=== PATIENT | female | born 1955 | race Caucasian/White ===

== ENCOUNTER 2016-04-21 08:38 | Emergency (ER) | payer OTHER ==
[~2016-04-21] VITALS: Ht 162.6 cm; Wt 59.0 kg
[~2016-04-21 08:38] MED LIST: HALO1TAB19 PO; LEVO25TA9 PO; LORA1TAB3 PO; MIRT30 PO; MULT1CAP32 PO; OLAN10TA3 PO; OMEP20 PO; PROP40TA7 PO; TRAZ-147 PO; ZOLP10 PO
[2016-04-21] MEDS ORDERED: CLON1 PO (08:52)
[2016-04-21] MEDS ORDERED: OXYB5 PO (08:52)
[2016-04-21] MEDS ORDERED: DOCU250C91 PO (08:52)
[2016-04-21 11:05] LABS: BASOPHILS # (AUTO) 0.01 K/uL (0.00-0.20); BASOPHILS % (AUTO) 0.3 % (0.0-2.0); EOSINOPHILS # (AUTO) 0.01 K/uL (0.00-0.70); EOSINOPHILS % (AUTO) 0.28 % (1.0-6.0); HEMATOCRIT 39.3 % (36-46); HEMOGLOBIN 13.7 g/dL (12.0-16.0); LYMPHOCYTES # (AUTO) 1.8 K/uL (1.0-4.8); LYMPHOCYTES % (AUTO) 34.5 % (22.0-44.0); MEAN CORPUSCULAR HEMOGLOBIN 33.5 pg (26.0-34.0); MEAN CORPUSCULAR HGB CONC 34.8 G/dL (31.0-37.0); MEAN CORPUSCULAR VOLUME 96 fL (80-100); MONOCYTES # (AUTO) 0.6 K/uL (0.1-1.0); MONOCYTES % (AUTO) 12.4 % (2.0-9.0); NEUTROPHILS # (AUTO) 2.7 K/uL (1.8-7.7); NEUTROPHILS % (AUTO) 52.6 % (40.0-70.0); PLATELET COUNT (AUTO) 191 K/uL (150-450); RED BLOOD CELL COUNT(AUTO) 4.09 MIL/uL (4.00-5.20); RED CELL DISTRIBUTION WIDTH 12.3 % (11.5-14.5); WHITE BLOOD COUNT (AUTO) 5.2 K/uL (4.5-11.0)
[2016-04-21 11:14] LABS: ANION GAP 4 mmol/L (8-16); CALCIUM, TOTAL 9.2 mg/dL (8.8-10.5); CARBON DIOXIDE 37 mmol/L (22-29); CHLORIDE 90 mmol/L (98-107); CREATININE 1.01 mg/dL (0.60-1.30); GLOMERULAR FILTR. RATE CALC 56 mL/min (>60); POTASSIUM 3.2 mmol/L (3.5-5.1); SODIUM SERUM 131 mmol/L (136-145); UREA NITROGEN, BLOOD 34 mg/dL (7-18)
[2016-04-21 11:20] LABS: ALANINE AMINOTRANSFERASE 20 U/L (12-78); ALBUMIN 3.7 g/dL (3.4-5.0); ASPARTATE AMINOTRANSFERASE 8 U/L (15-37); BILIRUBIN,TOTAL 0.4 mg/dL (0.1-1.0); TOTAL PROTEIN, SERUM 7.7 g/dL (6.4-8.2)
[2016-04-21] MEDS ORDERED: POTASSIUM CHLORIDE 20 MEQ ER TABLET PO ONE (11:30)
[2016-04-21] MEDS ORDERED: SODIUM CHLORIDE 0.9% 1,000 ML IV ONE (11:30)
[2016-04-21] MEDS ORDERED: ONDANSETRON HCL 4 MG/2 ML VIAL IVP ONE (11:30)
[2016-04-21 12:34] LABS: GLUCOSE, URINE (UA) NEGATIVE (NEGATIVE); KETONES,URINE TRACE mg/dL (NEGATIVE); LEUKOCYTE ESTERASE ,URINE NEGATIVE (NEGATIVE); OCCULT BLOOD,URINE NEGATIVE (NEGATIVE); PH,URINE 6.5 (5.0-8.0); PROTEIN,URINE POS 1+ (NEGATIVE)
[2016-04-21 12:38] LABS: ADD UA MICROSCOPIC YES; APPEARANCE,URINE HAZY (CLEAR)
[2016-04-21 12:40] LABS: RBC,URINE 0-2 /HPF (0-2); SQUAMOUS EPITHELIAL CELL,UR Moderate /LPF (None Seen); WBC,URINE 0-2 /HPF (0-5)
[2016-04-21 15:50] VITALS: BP 130/82
== END 2016-04-21 16:18 | disposition home or self-care (01) ==
LOC: EMS 08:39
DX: E86.0 Dehydration (principal); R11.2 Nausea with vomiting, unspecified; K21.9 Gastro-esophageal reflux disease without esophagitis; E03.9 Hypothyroidism, unspecified; F17.210 Nicotine dependence, cigarettes, uncomplicated
CPT/HCPCS: 36415; 80053; 80307; 81001; 83690; 85025; 96361; 96374; 99285; G0480; J2405; J7030

== ENCOUNTER 2017-01-01 18:30 | Inpatient (IN) | payer MEDICARE, MEDICAID ==
[~2017-01-01] VITALS: Ht 162.6 cm; Wt 46.9 kg
[~2017-01-01 18:30] MED LIST changes: +CLON1 PO; +DOCU250C91 PO; -LORA1TAB3 PO; -OLAN10TA3 PO; +OXYB5 PO; -ZOLP10 PO; +ZOLP10TA7 PO
[2017-01-01 19:52] LABS: BASOPHILS % (AUTO) 0.7 % (0.0-2.0); EOSINOPHILS % (AUTO) 0.6 % (1.0-6.0); HEMATOCRIT 39.5 % (36-46); HEMOGLOBIN 13.8 g/dL (12.0-16.0); LYMPHOCYTES # (AUTO) 2.7 K/uL (1.0-4.8); LYMPHOCYTES % (AUTO) 26.5 % (22.0-44.0); MEAN CORPUSCULAR HEMOGLOBIN 34.4 pg (26.0-34.0); MEAN CORPUSCULAR HGB CONC 34.9 G/dL (31.0-37.0); MEAN CORPUSCULAR VOLUME 99 fL (80-100); MONOCYTES # (AUTO) 1.1 K/uL (0.1-1.0); MONOCYTES % (AUTO) 10.9 % (2.0-9.0); NEUTROPHILS # (AUTO) 6.3 K/uL (1.8-7.7); NEUTROPHILS % (AUTO) 61.3 % (40.0-70.0); PLATELET COUNT (AUTO) 238 K/uL (150-450); RED CELL DISTRIBUTION WIDTH 12.8 % (11.5-14.5); WHITE BLOOD COUNT (AUTO) 10.3 K/uL (4.5-11.0)
[2017-01-01 20:13] LABS: ANION GAP 19 mmol/L (8-16); CALCIUM, TOTAL 9.4 mg/dL (8.8-10.5); CARBON DIOXIDE 18 mmol/L (22-29); CHLORIDE 100 mmol/L (98-107); CREATININE 1.03 mg/dL (0.60-1.30); GLOMERULAR FILTR. RATE CALC 54 mL/min (>60); POTASSIUM 3.7 mmol/L (3.5-5.1); SODIUM SERUM 137 mmol/L (136-145); UREA NITROGEN, BLOOD 27 mg/dL (7-18)
[2017-01-01 20:18] LABS: ALANINE AMINOTRANSFERASE 20 U/L (12-78); ALBUMIN 4.5 g/dL (3.4-5.0); ASPARTATE AMINOTRANSFERASE 30 U/L (15-37); BILIRUBIN,TOTAL 0.7 mg/dL (0.1-1.0); TOTAL PROTEIN, SERUM 7.9 g/dL (6.4-8.2)
[2017-01-01] MEDS ORDERED: SODIUM CHLORIDE 0.9% 1,000 ML IV ONE ×2 (20:30→23:00)
[2017-01-01] MEDS ORDERED: HALOPERIDOL LACTATE 5 MG/ML VIAL IM ONE (20:45)
[2017-01-01] MEDS ORDERED: DiphenhydrAMINE HCL 50 MG/ML VIAL IM ONE (20:45)
[2017-01-01] MEDS ORDERED: LORazepam 2 MG/ML VIAL IM ONE (20:45)
[2017-01-01 21:54] LABS: ACETAMINOPHEN < 2 mcg/mL (10-30)
[2017-01-01 22:00] LABS: SALICYLATE 8.3 mg/dL (2.8-20.0)
[2017-01-01] MEDS ORDERED: 0.9% SODIUM CHLORIDE 10 ML SYRINGE IVP PRN (22:15)
[2017-01-01] MEDS ORDERED: ACETAMINOPHEN 325 MG TABLET PO PRN (22:15)
[2017-01-02 01:13] LABS: ALANINE AMINOTRANSFERASE 18 U/L (12-78); ALBUMIN 3.2 g/dL (3.4-5.0); ANION GAP 10 mmol/L (8-16); ASPARTATE AMINOTRANSFERASE 30 U/L (15-37); BILIRUBIN,TOTAL 0.6 mg/dL (0.1-1.0); CALCIUM, TOTAL 7.8 mg/dL (8.8-10.5); CARBON DIOXIDE 21 mmol/L (22-29); CHLORIDE 108 mmol/L (98-107); CREATININE 0.86 mg/dL (0.60-1.30); GLOMERULAR FILTR. RATE CALC > 60 mL/min (>60); POTASSIUM 3.9 mmol/L (3.5-5.1); SODIUM SERUM 139 mmol/L (136-145); TOTAL PROTEIN, SERUM 5.8 g/dL (6.4-8.2); UREA NITROGEN, BLOOD 22 mg/dL (7-18)
[2017-01-02] MEDS ORDERED: OLANZapine 5 MG RAPDIS TABLET PO PRN (02:00)
[2017-01-02] MEDS ORDERED: LORazepam 2 MG TABLET PO PRN (02:00)
[2017-01-02] MEDS ORDERED: ZOLPIDEM TARTRATE 10 MG TABLET PO PRN (02:00)
[2017-01-02 02:48] LABS: CHOL/HDL RATIO 1.9 (3.9-5.7); THYROID STIMULATING HORMONE 1.74 uIU/mL (0.36-3.74)
[2017-01-02 03:12] VITALS: BP 130/72
[2017-01-02] MEDS ORDERED: INFLUENZA VIRUS VACCINE QVS 2017-18 (3YR+)/PF 60 MCG/0.5 ML SYRINGE IM ONE (03:30)
[2017-01-02] MEDS ORDERED: -PHARMACY VACCINE NOTE- MISC ONE ×2 (03:30)
[2017-01-02] MEDS ORDERED: PNEUMOCOCCAL VACCINE POLYVALENT 0.5 ML VIAL [PPSV23] IM ONE (04:15)
[2017-01-02 09:08] VITALS: BP 113/69
[2017-01-02] MEDS ORDERED: ACETAMINOPHEN 325 MG TABLET PO PRN (09:45)
[2017-01-02] MEDS ORDERED: TUBERCULIN, PURIFIED PROTEIN DERIVATIVE 5 TU/0.1 ML SYG ID ONE (09:45)
[2017-01-02] MEDS ORDERED: MAG HYDROX/AL HYDROX/SIMETH ES 30 ML SUSPENSION UDCUP PO PRN (09:45)
[2017-01-02] MEDS ORDERED: GuaiFENesin/D-METHORPHAN [SUGAR-FREE] 200-20MG/10 ML SYRUP UDCUP PO PRN (09:45)
[2017-01-02] MEDS ORDERED: HydrOXYzine PAMOATE 50 MG CAPSULE PO PRN (09:45)
[2017-01-02] MEDS ORDERED: MAGNESIUM HYDROXIDE SUSPENSION 30 ML UDCUP PO PRN (09:45)
[2017-01-02] MEDS ORDERED: LOPERAMIDE HCL 2 MG CAPSULE PO PRN (09:45)
[2017-01-02] MEDS ORDERED: PROMETHAZINE HCL 25 MG TABLET PO PRN (09:45)
[2017-01-02] MEDS ORDERED: OXYBUTYNIN CHLORIDE 5 MG TABLET PO PRN (11:45)
[2017-01-02] MEDS: THIAMINE HCL 100 MG TABLET PO SCH (18:25)
[2017-01-02] MEDS ORDERED: OLANZapine 10 MG RAPDIS TABLET PO SCH (21:00)
[2017-01-03] MEDS: LEVOTHYROXINE SODIUM 25 MCG TABLET PO SCH (06:46)
[2017-01-03 07:42] LABS: THYROID STIMULATING HORMONE 1.63 uIU/mL (0.36-3.74)
[2017-01-03 08:27] VITALS: BP 139/75
[2017-01-03] MEDS: DOCUSATE SODIUM 250 MG CAPSULE PO SCH (08:34)
[2017-01-03] MEDS: THIAMINE HCL 100 MG TABLET PO SCH ×2 (08:35→17:53)
[2017-01-03] MEDS: MULTIVITAMINS WITH MINERALS, THERAPEUTIC TABLET PO SCH (08:35)
[2017-01-03] MEDS: FOLIC ACID 1 MG TABLET PO SCH (08:35)
[2017-01-03] MEDS: OMEPRAZOLE 20 MG CAPSULE PO SCH (08:35)
[2017-01-03] MEDS ORDERED: HALOPERIDOL LACTATE 5 MG/ML VIAL IM PRN ×2 (11:45→17:15)
[2017-01-03] MEDS ORDERED: HALOPERIDOL 5 MG TABLET PO PRN (11:45)
[2017-01-03] MEDS: HALOPERIDOL 1 MG TABLET PO SCH ×3 (12:35→20:23)
[2017-01-03 16:39] VITALS: BP 130/80
[2017-01-04 05:09] LABS: HEPATITIS Bs ANTIGEN SCREEN P Negative (Negative); HEPATITIS C AB SCREEN <0.1 s/co ratio (0.0-0.9)
[2017-01-04] MEDS: LEVOTHYROXINE SODIUM 25 MCG TABLET PO SCH (06:36)
[2017-01-04 08:00] VITALS: BP 107/56
[2017-01-04] MEDS: DOCUSATE SODIUM 250 MG CAPSULE PO SCH (08:23)
[2017-01-04] MEDS: FOLIC ACID 1 MG TABLET PO SCH (08:23)
[2017-01-04] MEDS: MULTIVITAMINS WITH MINERALS, THERAPEUTIC TABLET PO SCH (08:23)
[2017-01-04] MEDS: THIAMINE HCL 100 MG TABLET PO SCH ×2 (08:24→16:21)
[2017-01-04] MEDS: HALOPERIDOL 1 MG TABLET PO SCH (08:24)
[2017-01-04] MEDS: OMEPRAZOLE 20 MG CAPSULE PO SCH (08:24)
[2017-01-04] MEDS: HALOPERIDOL 2 MG TABLET PO SCH ×3 (12:46→21:01)
[2017-01-04 16:29] VITALS: BP 141/75
[2017-01-05] MEDS: LEVOTHYROXINE SODIUM 25 MCG TABLET PO SCH (06:36)
[2017-01-05 08:16] VITALS: BP 115/60
[2017-01-05] MEDS: HALOPERIDOL 2 MG TABLET PO SCH ×4 (08:28→21:05)
[2017-01-05] MEDS: MULTIVITAMINS WITH MINERALS, THERAPEUTIC TABLET PO SCH (08:28)
[2017-01-05] MEDS: DOCUSATE SODIUM 250 MG CAPSULE PO SCH (08:28)
[2017-01-05] MEDS: THIAMINE HCL 100 MG TABLET PO SCH ×2 (08:28→16:34)
[2017-01-05] MEDS: OMEPRAZOLE 20 MG CAPSULE PO SCH (08:28)
[2017-01-05] MEDS: FOLIC ACID 1 MG TABLET PO SCH (08:28)
[2017-01-05 16:45] VITALS: BP 121/87
[2017-01-06] MEDS: LEVOTHYROXINE SODIUM 25 MCG TABLET PO SCH (06:49)
[2017-01-06 08:20] VITALS: BP 114/74
[2017-01-06] MEDS: MULTIVITAMINS WITH MINERALS, THERAPEUTIC TABLET PO SCH (09:49)
[2017-01-06] MEDS: FOLIC ACID 1 MG TABLET PO SCH (09:49)
[2017-01-06] MEDS: OMEPRAZOLE 20 MG CAPSULE PO SCH (09:49)
[2017-01-06] MEDS: THIAMINE HCL 100 MG TABLET PO SCH ×2 (09:49→16:09)
[2017-01-06] MEDS: DOCUSATE SODIUM 250 MG CAPSULE PO SCH (09:49)
[2017-01-06] MEDS: HALOPERIDOL 2 MG TABLET PO SCH ×4 (09:50→20:26)
[2017-01-06 16:57] VITALS: BP 137/78
[2017-01-07] MEDS: LEVOTHYROXINE SODIUM 25 MCG TABLET PO SCH (06:51)
[2017-01-07] MEDS: MULTIVITAMINS WITH MINERALS, THERAPEUTIC TABLET PO SCH (08:00)
[2017-01-07] MEDS: HALOPERIDOL 2 MG TABLET PO SCH ×4 (08:01→20:28)
[2017-01-07] MEDS: OMEPRAZOLE 20 MG CAPSULE PO SCH (08:01)
[2017-01-07] MEDS: THIAMINE HCL 100 MG TABLET PO SCH ×2 (08:01→16:19)
[2017-01-07] MEDS: FOLIC ACID 1 MG TABLET PO SCH (08:01)
[2017-01-07] MEDS: DOCUSATE SODIUM 250 MG CAPSULE PO SCH (08:01)
[2017-01-07 09:00] VITALS: BP 95/60
[2017-01-07 17:23] VITALS: BP 114/60
[2017-01-08] MEDS: LEVOTHYROXINE SODIUM 25 MCG TABLET PO SCH (06:50)
[2017-01-08 08:29] VITALS: BP 119/69
[2017-01-08] MEDS: MULTIVITAMINS WITH MINERALS, THERAPEUTIC TABLET PO SCH (10:40)
[2017-01-08] MEDS: FOLIC ACID 1 MG TABLET PO SCH (10:40)
[2017-01-08] MEDS: DOCUSATE SODIUM 250 MG CAPSULE PO SCH (10:40)
[2017-01-08] MEDS: OMEPRAZOLE 20 MG CAPSULE PO SCH (10:40)
[2017-01-08] MEDS: HALOPERIDOL 2 MG TABLET PO SCH ×2 (10:40→14:56)
[2017-01-08] MEDS: THIAMINE HCL 100 MG TABLET PO SCH ×2 (10:40→17:06)
[2017-01-08] MEDS ORDERED: HALO2 PO (15:34)
[2017-01-08 16:30] VITALS: BP 137/77
[2017-01-08] MEDS ORDERED: HALOPERIDOL 10 MG TABLET PO SCH (21:00)
[2017-01-09] MEDS: LEVOTHYROXINE SODIUM 25 MCG TABLET PO SCH (06:52)
[2017-01-09 08:00] VITALS: BP 130/60
[2017-01-09] MEDS: MULTIVITAMINS WITH MINERALS, THERAPEUTIC TABLET PO SCH (08:06)
[2017-01-09] MEDS: THIAMINE HCL 100 MG TABLET PO SCH (08:06)
[2017-01-09] MEDS: FOLIC ACID 1 MG TABLET PO SCH (08:06)
[2017-01-09] MEDS: OMEPRAZOLE 20 MG CAPSULE PO SCH (08:06)
[2017-01-09] MEDS: DOCUSATE SODIUM 250 MG CAPSULE PO SCH (08:07)
== END 2017-01-09 15:15 | disposition home or self-care (01) | DRG 885 ==
LOC: EMS 18:32 → 3EC 01-02 02:26
PROVIDERS: ADMIT Psychiatry & Neurology Psychiatry; ATTEND Psychiatry & Neurology Psychiatry
DX: F20.0 Paranoid schizophrenia (principal); E87.2 Acidosis; E03.9 Hypothyroidism, unspecified; F17.200 Nicotine dependence, unspecified, uncomplicated; K21.9 Gastro-esophageal reflux disease without esophagitis; K59.00 Constipation, unspecified; R32 Unspecified urinary incontinence; Z59.9 Problem related to housing and economic circumstances, unspecified; Z91.19 Patient's noncompliance with other medical treatment and regimen; Z28.21 Immunization not carried out because of patient refusal
CPT/HCPCS: 80074; 83036; 83605; 84439; 84443; 93005; 96360; 96361; 96372; 99285; G0480; G0481; J1200; J1630; J2060; J7030

== ENCOUNTER 2018-02-28 17:57 | Inpatient (IN) | payer OTHER, MEDICAID ==
[~2018-02-28] VITALS: Ht 165.1 cm; Wt 62.1 kg
[~2018-02-28 17:57] MED LIST changes: +BENZ1TAB10 PO; -DOCU250C91 PO; -HALO1TAB19 PO; +HALO2 PO; +HALO5TAB2 PO; -MIRT30 PO; -MULT1CAP32 PO; -OMEP20 PO; -OXYB5 PO; -PROP40TA7 PO; -TRAZ-147 PO; +TRAZ-220 PO; -ZOLP10TA7 PO
[2018-02-28 20:54] VITALS: BP 148/75
[2018-02-28 21:45] VITALS: BP 116/68
[2018-02-28] MEDS ORDERED: LOPERAMIDE HCL 2 MG CAPSULE PO PRN (22:45)
[2018-02-28] MEDS ORDERED: ALBUTEROL SULFATE HFA 90 MCG/PUFF 8 GM INHALER IH PRN (22:45)
[2018-02-28] MEDS ORDERED: PETROLATUM,WHITE 71 GM JELLY TP PRN (22:45)
[2018-02-28] MEDS ORDERED: DOCUSATE SODIUM 100 MG CAPSULE PO PRN (22:45)
[2018-02-28] MEDS ORDERED: ONDANSETRON HCL 4 MG TABLET PO PRN (22:45)
[2018-02-28] MEDS ORDERED: GuaiFENesin/D-METHORPHAN [SUGAR-FREE] 200-20MG/10 ML SYRUP UDCUP PO PRN (22:45)
[2018-02-28] MEDS ORDERED: CloNIDine HCL 0.1 MG TABLET PO PRN (22:45)
[2018-02-28] MEDS ORDERED: MAG HYDROX/AL HYDROX/SIMETH ES 30 ML SUSPENSION UDCUP PO PRN (22:45)
[2018-02-28] MEDS ORDERED: NICOTINE 14 MG/24 HOUR PATCH TD PRN (22:45)
[2018-03-01 04:12] VITALS: BP 125/67
[2018-03-01] MEDS: LEVOTHYROXINE SODIUM 25 MCG TABLET PO SCH (07:00)
[2018-03-01 08:14] VITALS: BP 123/64
[2018-03-01] MEDS: CEPHALEXIN MONOHYDRATE 500 MG CAPSULE PO SCH ×2 (08:49→16:36)
[2018-03-01] MEDS: ZINC OXIDE 20% 30 GM OINTMENT TP SCH ×2 (08:50→16:39)
[2018-03-01] MEDS ORDERED: CALAMINE/ZINC OXIDE 177 ML LOTION TP PRN (10:00)
[2018-03-01] MEDS ORDERED: CALAMINE/ZINC OXIDE 177 ML LOTION TP SCH (17:00)
[2018-03-01] MEDS: OLANZapine 10 MG TABLET PO SCH (20:07)
[2018-03-02] MEDS: LEVOTHYROXINE SODIUM 25 MCG TABLET PO SCH (05:55)
[2018-03-02 08:04] VITALS: BP 127/72
[2018-03-02 08:20] LABS: BASOPHILS % (AUTO) 0.9 % (0.0-2.0); EOSINOPHILS % (AUTO) 5.6 % (1.0-6.0); HEMATOCRIT 42.2 % (36-46); HEMOGLOBIN 14.4 g/dL (12.0-16.0); LYMPHOCYTES # (AUTO) 2.1 K/uL (1.0-4.8); LYMPHOCYTES % (AUTO) 34.5 % (22.0-44.0); MEAN CORPUSCULAR HEMOGLOBIN 34.2 pg (26.0-34.0); MEAN CORPUSCULAR VOLUME 101 fL (80-100); MONOCYTES # (AUTO) 0.5 K/uL (0.1-1.0); MONOCYTES % (AUTO) 7.8 % (2.0-9.0); NEUTROPHILS # (AUTO) 3.1 K/uL (1.8-7.7); NEUTROPHILS % (AUTO) 51.2 % (40.0-70.0); PLATELET COUNT (AUTO) 247 K/uL (150-450); RED CELL DISTRIBUTION WIDTH 13.8 % (11.5-14.5)
[2018-03-02 08:57] LABS: ALANINE AMINOTRANSFERASE 28 U/L (12-78); ALBUMIN 3.4 g/dL (3.4-5.0); ALKALINE PHOSPHATASE 80 U/L (46-116); ANION GAP 6 mmol/L (8-16); ASPARTATE AMINOTRANSFERASE 25 U/L (15-37); BILIRUBIN,TOTAL 0.2 mg/dL (0.1-1.0); CALCIUM, TOTAL 8.4 mg/dL (8.8-10.5); CARBON DIOXIDE 30 mmol/L (22-29); CHLORIDE 103 mmol/L (98-107); CHOL/HDL RATIO 2.8 (3.9-5.7); CHOLESTEROL 198 mg/dL (131-200); CREATININE 0.86 mg/dL (0.60-1.30); FREE T4 (FREE THYROXINE) 0.89 ng/dL (0.76-1.46); GLOMERULAR FILTR. RATE CALC > 60 mL/min (>60); GLUCOSE,RANDOM 166 mg/dL (70-110); HDL CHOLESTEROL 72 mg/dL (40-60); LDL CHOL (CALC.) 105 mg/dL (0-130); POTASSIUM 3.9 mmol/L (3.5-5.1); SODIUM SERUM 139 mmol/L (136-145); THYROID STIMULATING HORMONE 9.08 uIU/mL (0.36-3.74); TOTAL PROTEIN, SERUM 7.1 g/dL (6.4-8.2); TRIGLYCERIDES 106 mg/dL (15-150); UREA NITROGEN, BLOOD 19 mg/dL (7-18)
[2018-03-02] MEDS: CEPHALEXIN MONOHYDRATE 500 MG CAPSULE PO SCH ×2 (09:01→16:25)
[2018-03-02] MEDS: ZINC OXIDE 20% 30 GM OINTMENT TP SCH ×2 (09:01→19:55)
[2018-03-02 09:22] LABS: HEMOGLOBIN A1C 5.2 % (4.5-6.2)
[2018-03-02] MEDS: HALOPERIDOL 5 MG TABLET PO PRN (12:38)
[2018-03-02] MEDS: CALAMINE/ZINC OXIDE 177 ML LOTION TP PRN (14:38)
[2018-03-02 16:15] VITALS: BP 141/65
[2018-03-02] MEDS: OLANZapine 10 MG TABLET PO SCH (20:05)
[2018-03-03 03:18] VITALS: BP 126/69
[2018-03-03] MEDS: LEVOTHYROXINE SODIUM 25 MCG TABLET PO SCH (06:26)
[2018-03-03 08:17] VITALS: BP 129/76
[2018-03-03] MEDS: ZINC OXIDE 20% 30 GM OINTMENT TP SCH ×2 (08:19→16:45)
[2018-03-03] MEDS: CEPHALEXIN MONOHYDRATE 500 MG CAPSULE PO SCH ×2 (08:19→16:45)
[2018-03-03 09:02] LABS: APPEARANCE,URINE CLEAR (CLEAR); BILIRUBIN,URINE NEGATIVE (NEGATIVE); GLUCOSE, URINE (UA) NEGATIVE (NEGATIVE); KETONES,URINE NEGATIVE (NEGATIVE); LEUKOCYTE ESTERASE ,URINE NEGATIVE (NEGATIVE); NITRATE,URINE NEGATIVE (NEGATIVE); OCCULT BLOOD,URINE NEGATIVE (NEGATIVE); PROTEIN,URINE NEGATIVE (NEGATIVE); UROBILINOGEN,URINE 0.2 mg/dL (<=1.0)
[2018-03-03 09:53] LABS: AMPHET/METH SCREEN,URINE NEGATIVE (NEGATIVE); BARBITURATE SCREEN, URINE NEGATIVE (NEGATIVE); BENZODIAZEPINES SCREEN,URINE NEGATIVE (NEGATIVE); CANNABINOID SCREEN,URINE NEGATIVE (NEGATIVE); COCAINE SCREEN,URINE NEGATIVE (NEGATIVE); METHADONE SCREEN, URINE NEGATIVE (NEGATIVE); OPIATE SCREEN,URINE NEGATIVE (NEGATIVE)
[2018-03-03 10:14] LABS: PHENCYCLIDINE SCREEN,URINE NEGATIVE (NEGATIVE)
[2018-03-03] MEDS: LORazepam 2 MG TABLET PO PRN ×2 (11:13→20:22)
[2018-03-03 16:04] VITALS: BP 128/65
[2018-03-03] MEDS: HALOPERIDOL 5 MG TABLET PO PRN (16:45)
[2018-03-03] MEDS: OLANZapine 10 MG TABLET PO SCH (20:22)
[2018-03-03] MEDS: ZOLPIDEM TARTRATE 10 MG TABLET PO PRN (20:22)
[2018-03-04] VITALS: BP 121/74
[2018-03-04] MEDS: LEVOTHYROXINE SODIUM 25 MCG TABLET PO SCH (06:05)
[2018-03-04 08:04] VITALS: BP 131/72
[2018-03-04] MEDS: ZINC OXIDE 20% 30 GM OINTMENT TP SCH ×2 (08:06→16:52)
[2018-03-04] MEDS: CEPHALEXIN MONOHYDRATE 500 MG CAPSULE PO SCH ×2 (08:06→16:08)
[2018-03-04] MEDS: LORazepam 2 MG TABLET PO PRN ×2 (08:29→16:52)
[2018-03-04 16:09] VITALS: BP 143/74
[2018-03-04] MEDS: BENZTROPINE MESYLATE 1 MG TABLET PO SCH (16:51)
[2018-03-04] MEDS: HALOPERIDOL 5 MG TABLET PO PRN (16:51)
[2018-03-04] MEDS: OLANZapine 10 MG TABLET PO SCH (20:08)
[2018-03-04] MEDS: CALAMINE/ZINC OXIDE 177 ML LOTION TP PRN (20:18)
[2018-03-04] MEDS: ZOLPIDEM TARTRATE 10 MG TABLET PO PRN (22:23)
[2018-03-05 00:31] VITALS: BP 126/71
[2018-03-05] MEDS: LEVOTHYROXINE SODIUM 25 MCG TABLET PO SCH (06:22)
[2018-03-05 08:40] VITALS: BP 131/68
[2018-03-05] MEDS: BENZTROPINE MESYLATE 1 MG TABLET PO SCH ×2 (09:18→16:30)
[2018-03-05] MEDS: ZINC OXIDE 20% 30 GM OINTMENT TP SCH ×2 (09:18→16:29)
[2018-03-05] MEDS: CEPHALEXIN MONOHYDRATE 500 MG CAPSULE PO SCH ×2 (09:18→17:00)
[2018-03-05] MEDS: LORazepam 2 MG TABLET PO PRN ×2 (10:27→16:33)
[2018-03-05 17:16] VITALS: BP 121/62
[2018-03-05] MEDS: OLANZapine 7.5 MG TABLET PO SCH (20:05)
[2018-03-06 05:12] VITALS: BP 125/71
[2018-03-06] MEDS: LEVOTHYROXINE SODIUM 25 MCG TABLET PO SCH (06:19)
[2018-03-06 08:08] VITALS: BP 133/62
[2018-03-06] MEDS: BENZTROPINE MESYLATE 1 MG TABLET PO SCH ×2 (08:52→16:24)
[2018-03-06] MEDS: CEPHALEXIN MONOHYDRATE 500 MG CAPSULE PO SCH ×2 (08:52→16:25)
[2018-03-06] MEDS: LORazepam 2 MG TABLET PO PRN ×2 (08:54→18:19)
[2018-03-06] MEDS: HALOPERIDOL 5 MG TABLET PO PRN ×2 (08:54→18:19)
[2018-03-06] MEDS: ZINC OXIDE 20% 30 GM OINTMENT TP SCH ×2 (08:54→16:25)
[2018-03-06 16:01] VITALS: BP 133/72
[2018-03-06] MEDS: OLANZapine 7.5 MG TABLET PO SCH (20:36)
[2018-03-07] MEDS: CALAMINE/ZINC OXIDE 177 ML LOTION TP PRN (00:57)
[2018-03-07 02:46] VITALS: BP 127/72
[2018-03-07] MEDS: LEVOTHYROXINE SODIUM 25 MCG TABLET PO SCH (06:44)
[2018-03-07 08:13] VITALS: BP 133/74
[2018-03-07] MEDS: BENZTROPINE MESYLATE 1 MG TABLET PO SCH ×2 (08:28→16:32)
[2018-03-07] MEDS: CEPHALEXIN MONOHYDRATE 500 MG CAPSULE PO SCH ×2 (08:28→16:32)
[2018-03-07] MEDS: ZINC OXIDE 20% 30 GM OINTMENT TP SCH ×2 (08:29→16:33)
[2018-03-07] MEDS: LORazepam 2 MG TABLET PO PRN ×2 (08:29→18:09)
[2018-03-07] MEDS: HALOPERIDOL 5 MG TABLET PO PRN (08:29)
[2018-03-07 16:31] VITALS: BP_SYST 111; BP_SYST 117; BP_DIAS 61; BP_DIAS 73
[2018-03-07 18:30] VITALS: BP 127/76
[2018-03-07] MEDS: ACETAMINOPHEN 325 MG TABLET PO PRN (18:54)
[2018-03-07] MEDS: OLANZapine 7.5 MG TABLET PO SCH (20:12)
[2018-03-08 06:43] VITALS: BP 128/69
[2018-03-08] MEDS: LEVOTHYROXINE SODIUM 25 MCG TABLET PO SCH (06:57)
[2018-03-08 08:24] VITALS: BP 116/79
[2018-03-08] MEDS: BENZTROPINE MESYLATE 1 MG TABLET PO SCH ×2 (08:27→16:40)
[2018-03-08] MEDS: ZINC OXIDE 20% 30 GM OINTMENT TP SCH ×2 (08:28→16:41)
[2018-03-08] MEDS: LORazepam 2 MG TABLET PO PRN ×2 (09:00→21:14)
[2018-03-08 16:02] VITALS: BP 116/62
[2018-03-08] MEDS: OLANZapine 7.5 MG TABLET PO SCH (20:42)
[2018-03-09 01:03] VITALS: BP 120/72
[2018-03-09] MEDS: LEVOTHYROXINE SODIUM 25 MCG TABLET PO SCH (06:32)
[2018-03-09 08:18] VITALS: BP 128/74
[2018-03-09] MEDS: BENZTROPINE MESYLATE 1 MG TABLET PO SCH ×2 (08:31→16:26)
[2018-03-09] MEDS: LORazepam 2 MG TABLET PO PRN ×2 (08:31→16:27)
[2018-03-09] MEDS: HALOPERIDOL 5 MG TABLET PO PRN (08:31)
[2018-03-09] MEDS: ZINC OXIDE 20% 30 GM OINTMENT TP SCH ×2 (09:11→16:26)
[2018-03-09 16:03] VITALS: BP 121/68
[2018-03-09] MEDS: OLANZapine 7.5 MG TABLET PO SCH (21:00)
[2018-03-09 22:55] VITALS: BP 129/80
[2018-03-10] MEDS: LEVOTHYROXINE SODIUM 25 MCG TABLET PO SCH (06:31)
[2018-03-10 06:38] VITALS: BP 125/72
[2018-03-10] MEDS: BENZTROPINE MESYLATE 1 MG TABLET PO SCH ×2 (08:10→16:58)
[2018-03-10] MEDS: ZINC OXIDE 20% 30 GM OINTMENT TP SCH ×2 (08:11→16:58)
[2018-03-10 08:14] VITALS: BP 129/77
[2018-03-10 16:09] VITALS: BP 137/66
[2018-03-10] MEDS: LORazepam 2 MG TABLET PO PRN (19:48)
[2018-03-10] MEDS: OLANZapine 7.5 MG TABLET PO SCH (20:24)
[2018-03-11 00:58] VITALS: BP 127/75
[2018-03-11] MEDS: LEVOTHYROXINE SODIUM 25 MCG TABLET PO SCH (06:38)
[2018-03-11 08:14] VITALS: BP 116/71
[2018-03-11] MEDS: BENZTROPINE MESYLATE 1 MG TABLET PO SCH ×2 (08:15→16:21)
[2018-03-11] MEDS: ZINC OXIDE 20% 30 GM OINTMENT TP SCH ×2 (08:16→16:22)
[2018-03-11 08:24] VITALS: BP 116/71
[2018-03-11 16:14] VITALS: BP 132/65
[2018-03-11] MEDS: LORazepam 2 MG TABLET PO PRN (16:22)
[2018-03-11] MEDS: HALOPERIDOL 5 MG TABLET PO PRN (16:22)
[2018-03-11 18:10] VITALS: BP 116/67
[2018-03-11] MEDS: IBUPROFEN 400 MG TABLET PO PRN (18:12)
[2018-03-11] MEDS: OLANZapine 10 MG TABLET PO SCH (20:38)
[2018-03-12 01:53] VITALS: BP 115/71
[2018-03-12] MEDS: LEVOTHYROXINE SODIUM 25 MCG TABLET PO SCH (06:36)
[2018-03-12] MEDS: LORazepam 2 MG TABLET PO PRN (08:21)
[2018-03-12] MEDS: ZINC OXIDE 20% 30 GM OINTMENT TP SCH ×2 (08:21→16:46)
[2018-03-12] MEDS: BENZTROPINE MESYLATE 1 MG TABLET PO SCH ×2 (08:21→16:46)
[2018-03-12 08:24] VITALS: BP 144/77
[2018-03-12 16:38] VITALS: BP 124/70
[2018-03-12 17:23] VITALS: BP 128/75
[2018-03-12] MEDS: ACETAMINOPHEN 325 MG TABLET PO PRN (17:23)
[2018-03-12] MEDS: MAGNESIUM HYDROXIDE SUSPENSION 30 ML UDCUP PO PRN (20:40)
[2018-03-12] MEDS: OLANZapine 10 MG TABLET PO SCH (20:40)
[2018-03-12] MEDS: ZOLPIDEM TARTRATE 10 MG TABLET PO PRN (22:31)
[2018-03-13 01:22] VITALS: BP 125/71
[2018-03-13] MEDS: LEVOTHYROXINE SODIUM 25 MCG TABLET PO SCH (06:06)
[2018-03-13 08:31] VITALS: BP 141/73
[2018-03-13] MEDS: LORazepam 2 MG TABLET PO PRN ×2 (08:39→16:34)
[2018-03-13] MEDS: HALOPERIDOL 5 MG TABLET PO PRN ×2 (08:39→16:34)
[2018-03-13] MEDS: BENZTROPINE MESYLATE 1 MG TABLET PO SCH ×2 (08:39→16:34)
[2018-03-13] MEDS: ZINC OXIDE 20% 30 GM OINTMENT TP SCH ×2 (08:39→16:34)
[2018-03-13 16:00] VITALS: BP 137/80
[2018-03-13] MEDS: MIRTAZAPINE 15 MG TABLET PO SCH (20:57)
[2018-03-13] MEDS: OLANZapine 10 MG TABLET PO SCH (20:57)
[2018-03-14 02:41] VITALS: BP 117/70
[2018-03-14] MEDS: LEVOTHYROXINE SODIUM 25 MCG TABLET PO SCH (07:02)
[2018-03-14] MEDS: HALOPERIDOL 5 MG TABLET PO PRN (08:10)
[2018-03-14] MEDS: BENZTROPINE MESYLATE 1 MG TABLET PO SCH ×2 (08:10→16:21)
[2018-03-14] MEDS: ZINC OXIDE 20% 30 GM OINTMENT TP SCH ×2 (08:10→17:04)
[2018-03-14] MEDS: LORazepam 2 MG TABLET PO PRN ×2 (08:11→17:49)
[2018-03-14 08:23] VITALS: BP 117/77
[2018-03-14] MEDS: MIRTAZAPINE 15 MG TABLET PO SCH (20:28)
[2018-03-14] MEDS: OLANZapine 10 MG TABLET PO SCH (20:29)
[2018-03-14] MEDS: MAGNESIUM HYDROXIDE SUSPENSION 30 ML UDCUP PO PRN (22:16)
[2018-03-15 05:19] VITALS: BP 122/72
[2018-03-15] MEDS: LEVOTHYROXINE SODIUM 25 MCG TABLET PO SCH (06:38)
[2018-03-15 08:09] VITALS: BP 111/68
[2018-03-15] MEDS: BENZTROPINE MESYLATE 1 MG TABLET PO SCH ×2 (08:36→16:21)
[2018-03-15] MEDS: ZINC OXIDE 20% 30 GM OINTMENT TP SCH ×2 (08:36→16:22)
[2018-03-15] MEDS: MAGNESIUM HYDROXIDE SUSPENSION 30 ML UDCUP PO PRN (09:20)
[2018-03-15 16:05] VITALS: BP 127/68
[2018-03-15] MEDS: LORazepam 2 MG TABLET PO PRN (16:22)
[2018-03-15] MEDS: OLANZapine 10 MG TABLET PO SCH (20:32)
[2018-03-15] MEDS: MIRTAZAPINE 15 MG TABLET PO SCH (20:32)
[2018-03-16 00:12] VITALS: BP 128/84
[2018-03-16] MEDS: LORazepam 2 MG TABLET PO PRN ×3 (00:16→20:23)
[2018-03-16] MEDS: LEVOTHYROXINE SODIUM 25 MCG TABLET PO SCH (07:19)
[2018-03-16] MEDS: BENZTROPINE MESYLATE 1 MG TABLET PO SCH ×2 (08:48→16:36)
[2018-03-16] MEDS: ZINC OXIDE 20% 30 GM OINTMENT TP SCH ×2 (08:48→16:36)
[2018-03-16] MEDS ORDERED: PENICILLIN G BENZATHINE LA 2,400,000 UNITS/4 ML SYRINGE IM ONE (10:00)
[2018-03-16 16:03] VITALS: BP 109/71
[2018-03-16] MEDS: HALOPERIDOL 5 MG TABLET PO PRN (16:36)
[2018-03-16] MEDS: OLANZapine 10 MG TABLET PO SCH (20:23)
[2018-03-16] MEDS: MIRTAZAPINE 15 MG TABLET PO SCH ×2 (20:24→21:00)
[2018-03-17] MEDS: LORazepam 2 MG TABLET PO PRN ×3 (01:12→17:11)
[2018-03-17 02:09] VITALS: BP 112/71
[2018-03-17] MEDS: LEVOTHYROXINE SODIUM 25 MCG TABLET PO SCH (06:21)
[2018-03-17 08:20] VITALS: BP 146/80
[2018-03-17] MEDS: ZINC OXIDE 20% 30 GM OINTMENT TP SCH ×2 (08:21→16:34)
[2018-03-17] MEDS: BENZTROPINE MESYLATE 1 MG TABLET PO SCH ×2 (08:21→16:34)
[2018-03-17 15:59] VITALS: BP 109/66
[2018-03-17 16:25] VITALS: BP 109/66
[2018-03-17] MEDS: MAGNESIUM HYDROXIDE SUSPENSION 30 ML UDCUP PO PRN (18:18)
[2018-03-17] MEDS: MIRTAZAPINE 15 MG TABLET PO SCH (20:15)
[2018-03-17] MEDS: OLANZapine 10 MG TABLET PO SCH (20:15)
[2018-03-18 02:06] VITALS: BP 128/76
[2018-03-18] MEDS: LEVOTHYROXINE SODIUM 25 MCG TABLET PO SCH (06:25)
[2018-03-18 08:16] VITALS: BP 119/74
[2018-03-18] MEDS: BENZTROPINE MESYLATE 1 MG TABLET PO SCH ×2 (08:29→16:10)
[2018-03-18] MEDS: LORazepam 2 MG TABLET PO PRN ×2 (08:29→16:11)
[2018-03-18] MEDS: ZINC OXIDE 20% 30 GM OINTMENT TP SCH ×2 (08:29→16:10)
[2018-03-18 16:02] VITALS: BP 121/84
[2018-03-18] MEDS: IBUPROFEN 400 MG TABLET PO PRN (19:03)
[2018-03-18] MEDS: OLANZapine 10 MG TABLET PO SCH (20:34)
[2018-03-18] MEDS: MIRTAZAPINE 15 MG TABLET PO SCH (20:35)
[2018-03-19] MEDS: LEVOTHYROXINE SODIUM 25 MCG TABLET PO SCH (06:30)
[2018-03-19 07:08] VITALS: BP 125/78
[2018-03-19 08:14] VITALS: BP 123/75
[2018-03-19] MEDS: BENZTROPINE MESYLATE 1 MG TABLET PO SCH ×2 (08:29→16:08)
[2018-03-19] MEDS: ZINC OXIDE 20% 30 GM OINTMENT TP SCH ×2 (08:30→17:17)
[2018-03-19] MEDS: LORazepam 2 MG TABLET PO PRN ×2 (09:31→16:08)
[2018-03-19 16:00] VITALS: BP 125/70
[2018-03-19] MEDS: CALAMINE/ZINC OXIDE 177 ML LOTION TP PRN (17:09)
[2018-03-19] MEDS: OLANZapine 10 MG TABLET PO SCH (20:10)
[2018-03-20] MEDS: LEVOTHYROXINE SODIUM 25 MCG TABLET PO SCH (05:53)
[2018-03-20 06:09] VITALS: BP 111/70
[2018-03-20] MEDS: HALOPERIDOL 5 MG TABLET PO PRN (08:12)
[2018-03-20] MEDS: LORazepam 2 MG TABLET PO PRN (08:12)
[2018-03-20] MEDS: BENZTROPINE MESYLATE 1 MG TABLET PO SCH ×2 (08:12→16:13)
[2018-03-20] MEDS: ZINC OXIDE 20% 30 GM OINTMENT TP SCH ×2 (08:12→16:13)
[2018-03-20 08:28] VITALS: BP 118/79
[2018-03-20 16:21] VITALS: BP 142/64
[2018-03-20] MEDS: MAGNESIUM HYDROXIDE SUSPENSION 30 ML UDCUP PO PRN (20:00)
[2018-03-20] MEDS: OLANZapine 10 MG TABLET PO SCH (20:45)
[2018-03-21 03:46] VITALS: BP 110/72
[2018-03-21] MEDS: ACETAMINOPHEN 325 MG TABLET PO PRN (05:34)
[2018-03-21] MEDS: LEVOTHYROXINE SODIUM 25 MCG TABLET PO SCH (06:46)
[2018-03-21 08:15] VITALS: BP 112/66
[2018-03-21] MEDS: ZINC OXIDE 20% 30 GM OINTMENT TP SCH ×2 (08:32→16:49)
[2018-03-21] MEDS: HALOPERIDOL 5 MG TABLET PO PRN ×2 (08:32→16:49)
[2018-03-21] MEDS: LORazepam 2 MG TABLET PO PRN ×2 (08:32→16:49)
[2018-03-21] MEDS: BENZTROPINE MESYLATE 1 MG TABLET PO SCH ×2 (08:32→16:49)
[2018-03-21 16:10] VITALS: BP 139/74
[2018-03-21] MEDS: OLANZapine 10 MG TABLET PO SCH (20:15)
[2018-03-22 00:01] VITALS: BP 110/67
[2018-03-22] MEDS: LEVOTHYROXINE SODIUM 25 MCG TABLET PO SCH (06:19)
[2018-03-22] MEDS: BENZTROPINE MESYLATE 1 MG TABLET PO SCH ×2 (07:56→16:22)
[2018-03-22] MEDS: ZINC OXIDE 20% 30 GM OINTMENT TP SCH ×2 (07:56→16:21)
[2018-03-22 08:08] VITALS: BP 114/64
[2018-03-22] MEDS: LORazepam 2 MG TABLET PO PRN ×3 (09:51→21:59)
[2018-03-22 16:10] VITALS: BP 131/77
[2018-03-22] MEDS: HALOPERIDOL 5 MG TABLET PO PRN (16:22)
[2018-03-22] MEDS: OLANZapine 10 MG TABLET PO SCH (20:02)
[2018-03-23] VITALS: BP 120/72
[2018-03-23] MEDS: LEVOTHYROXINE SODIUM 25 MCG TABLET PO SCH (06:35)
[2018-03-23 08:00] VITALS: BP 120/71
[2018-03-23 08:01] VITALS: BP 120/71
[2018-03-23] MEDS ORDERED: PENICILLIN G BENZATHINE LA 2,400,000 UNITS/4 ML SYRINGE IM ONE (09:00)
[2018-03-23] MEDS: BENZTROPINE MESYLATE 1 MG TABLET PO SCH ×2 (09:03→16:13)
[2018-03-23] MEDS: ZINC OXIDE 20% 30 GM OINTMENT TP SCH ×2 (09:03→16:13)
[2018-03-23] MEDS: MAGNESIUM HYDROXIDE SUSPENSION 30 ML UDCUP PO PRN (13:03)
[2018-03-23 16:01] VITALS: BP 133/85
[2018-03-23] MEDS: OLANZapine 10 MG TABLET PO SCH (20:18)
[2018-03-23] MEDS: LORazepam 2 MG TABLET PO PRN (22:46)
[2018-03-24 00:14] VITALS: BP 138/79
[2018-03-24] MEDS: LEVOTHYROXINE SODIUM 25 MCG TABLET PO SCH (06:11)
[2018-03-24 08:00] VITALS: BP 142/73
[2018-03-24] MEDS: BENZTROPINE MESYLATE 1 MG TABLET PO SCH ×2 (08:25→16:02)
[2018-03-24] MEDS: LORazepam 2 MG TABLET PO PRN (08:25)
[2018-03-24] MEDS: ZINC OXIDE 20% 30 GM OINTMENT TP SCH ×2 (08:25→16:02)
[2018-03-24] MEDS: MAGNESIUM HYDROXIDE SUSPENSION 30 ML UDCUP PO PRN ×2 (10:32→16:23)
[2018-03-24 16:03] VITALS: BP 117/67
[2018-03-24] MEDS: OLANZapine 10 MG TABLET PO SCH (20:48)
[2018-03-25 04:31] VITALS: BP 124/88
[2018-03-25] MEDS: LEVOTHYROXINE SODIUM 25 MCG TABLET PO SCH (06:08)
[2018-03-25] MEDS: LORazepam 2 MG TABLET PO PRN (08:11)
[2018-03-25] MEDS: HALOPERIDOL 5 MG TABLET PO PRN (08:11)
[2018-03-25] MEDS: BENZTROPINE MESYLATE 1 MG TABLET PO SCH ×2 (08:11→17:06)
[2018-03-25] MEDS: ZINC OXIDE 20% 30 GM OINTMENT TP SCH ×2 (08:11→17:03)
[2018-03-25 08:12] VITALS: BP 100/61
[2018-03-25 16:05] VITALS: BP 118/72
[2018-03-25] MEDS: MUPIROCIN CALCIUM 2% 22 GM OINTMENT NASAL SCH (17:03)
[2018-03-25] MEDS: OLANZapine 10 MG TABLET PO SCH (21:06)
[2018-03-26 02:15] VITALS: BP 115/70
[2018-03-26] MEDS: LEVOTHYROXINE SODIUM 25 MCG TABLET PO SCH (06:30)
[2018-03-26] MEDS: MUPIROCIN CALCIUM 2% 22 GM OINTMENT NASAL SCH ×2 (08:00→16:19)
[2018-03-26] MEDS: LORazepam 2 MG TABLET PO PRN ×2 (08:00→16:18)
[2018-03-26] MEDS: ZINC OXIDE 20% 30 GM OINTMENT TP SCH ×2 (08:00→16:19)
[2018-03-26] MEDS: BENZTROPINE MESYLATE 1 MG TABLET PO SCH ×2 (08:00→16:18)
[2018-03-26 08:11] VITALS: BP 134/77
[2018-03-26 16:06] VITALS: BP 133/87
[2018-03-26] MEDS: OLANZapine 10 MG TABLET PO SCH (20:07)
[2018-03-26] MEDS: MAGNESIUM HYDROXIDE SUSPENSION 30 ML UDCUP PO PRN (21:14)
[2018-03-27 03:00] VITALS: BP 124/77
[2018-03-27] MEDS: LEVOTHYROXINE SODIUM 25 MCG TABLET PO SCH (06:50)
[2018-03-27 08:00] VITALS: BP 109/72
[2018-03-27] MEDS: LORazepam 2 MG TABLET PO PRN ×2 (08:09→16:15)
[2018-03-27] MEDS: BENZTROPINE MESYLATE 1 MG TABLET PO SCH ×2 (08:09→16:15)
[2018-03-27] MEDS: MUPIROCIN CALCIUM 2% 22 GM OINTMENT NASAL SCH ×2 (08:09→16:16)
[2018-03-27] MEDS: ZINC OXIDE 20% 30 GM OINTMENT TP SCH ×2 (08:09→16:15)
[2018-03-27 16:00] VITALS: BP 117/62
[2018-03-27] MEDS: CALAMINE/ZINC OXIDE 177 ML LOTION TP PRN (16:15)
[2018-03-27] MEDS: OLANZapine 10 MG TABLET PO SCH (20:23)
[2018-03-28 01:15] VITALS: BP 112/78
[2018-03-28] MEDS: LEVOTHYROXINE SODIUM 25 MCG TABLET PO SCH (06:30)
[2018-03-28] MEDS: LORazepam 2 MG TABLET PO PRN (08:22)
[2018-03-28] MEDS: BENZTROPINE MESYLATE 1 MG TABLET PO SCH (08:22)
[2018-03-28 08:23] VITALS: BP 114/62
[2018-03-28] MEDS: ZINC OXIDE 20% 30 GM OINTMENT TP SCH (08:23)
[2018-03-28] MEDS: MUPIROCIN CALCIUM 2% 22 GM OINTMENT NASAL SCH (08:23)
[2018-03-28] MEDS ORDERED: BENZ1TAB10 PO (10:19)
[2018-03-28] MEDS ORDERED: OLAN10TA3 PO (10:20)
== END 2018-03-28 13:20 | disposition home or self-care (01) | DRG 885 ==
LOC: B3A 21:21
PROVIDERS: ADMIT Psychiatry & Neurology Psychiatry; ATTEND Psychiatry & Neurology Psychiatry
DX: F20.0 Paranoid schizophrenia (principal); N39.0 Urinary tract infection, site not specified; F29 Unspecified psychosis not due to a substance or known physiological condition; A53.0 Latent syphilis, unspecified as early or late; E03.9 Hypothyroidism, unspecified; F17.200 Nicotine dependence, unspecified, uncomplicated; I10 Essential (primary) hypertension; J44.9 Chronic obstructive pulmonary disease, unspecified; K21.9 Gastro-esophageal reflux disease without esophagitis; L22 Diaper dermatitis; F41.9 Anxiety disorder, unspecified; R32 Unspecified urinary incontinence; Z71.6 Tobacco abuse counseling; Z59.0 Homelessness; Z79.899 Other long term (current) drug therapy; Z28.21 Immunization not carried out because of patient refusal
CPT/HCPCS: 80307; 83036; 84439; 84443; 86592; 86780; 87081; J0561; J3535

== ENCOUNTER 2018-03-09 20:10 | Emergency (ER) | payer MEDICARE, MEDICAID ==
[~2018-03-09] VITALS: Ht 165.1 cm; Wt 68.2 kg
[2018-03-09] MEDS ORDERED: PENICILLIN G BENZATHINE LA 2,400,000 UNITS/4 ML SYRINGE IM ONE (21:45)
[2018-03-09 22:00] VITALS: BP 136/77
== END 2018-03-09 22:33 | disposition home or self-care (01) ==
LOC: EMS 20:11
DX: A53.0 Latent syphilis, unspecified as early or late (principal); E03.9 Hypothyroidism, unspecified; F31.9 Bipolar disorder, unspecified; F20.9 Schizophrenia, unspecified; K21.9 Gastro-esophageal reflux disease without esophagitis; F17.210 Nicotine dependence, cigarettes, uncomplicated; Z79.899 Other long term (current) drug therapy
CPT/HCPCS: 96372; 99283; J0561